=== PATIENT | female | born 1975 | race Caucasian/White ===

== ENCOUNTER → 2016-10-14 | Outpatient (CLI) | payer OTHER ==
--- NOTE | 2016-10-15 13:18 | MAMMOGRAPHY REPORT ---
BILATERAL DIGITAL SCREENING MAMMOGRAM TOMOSYNTHESIS WITH CAD: 10/14/2016 CLINICAL HISTORY: Routine screening. Patient has no complaints. TECHNIQUE: Breast tomosynthesis in addition to standard 2D mammography was performed. Current study was also evaluated with a Computer Aided Detection (CAD) system. COMPARISON: Comparison is made to exams dated: 06/20/2011 ultrasound and 06/20/2011 mammogram - [facility]. BREAST COMPOSITION: The tissue of both breasts is heterogeneously dense, which may obscure small ma sses. FINDINGS: The parenchymal pattern is unchanged. No developing mass, architectural distortion or clu ster of suspicious microcalcifications is seen in either breast. IMPRESSION: ACR BI-RADS CATEGORY 2: BENIGN There is no mammographic evidence of malignancy. A 1 year screening mammogram is recommended. The p atient will receive written notification of the results. Approximately 10% of breast cancers are not detected with mammography. A negative mammographic repor t should not delay biopsy if a clinically suggestive mass is present. Nicole Vincent M.D. ay/:10/14/2016 16:44:43 Chemical Processor: Uyen HARRELL(R)(Mg), [facility] letter sent: Normal 1/2 BI-RADS Code: ACR BI-RADS Category 2: Benign
== END | disposition home or self-care (01) ==
LOC: C.MAMM 14:50
PROVIDERS: ATTEND Obstetrics & Gynecology
DX: Z12.31 Encounter for screening mammogram for malignant neoplasm of breast (principal)

== ENCOUNTER → 2017-09-22 | Outpatient (CLI) | payer OTHER ==
[~2017-09-22] MED LIST: ACET-1256 PO; NAPR1TAB9 PO
--- NOTE | 2017-09-22 14:59 | DIAGNOSTIC IMAGING REPORT ---
CHEST 2 VIEWS ROUTINE CLINICAL HISTORY: CERVICAL SPINAL STENOSIS preoperative evaluation COMPARISON STUDY: No previous studies for comparison. FINDINGS: The bones soft tissues and hemidiaphragms are normal. The cardiomediastinal silhouette is normal. The lungs are clear. The pulmonary vasculature is normal. IMPRESSION: Negative chest. The above report was generated using voice recognition software. It may contain grammatical, syntax or spelling errors. Electronically signed by: Phill Corral M.D. 09/22/2017 2:58 PM Dictated Date/Time: 09/22/2017 2:58 PM
[2017-09-22 16:42] LABS: BASO % 0.5 %; BASO ABS # 0.03 K/uL (0-0.2); EOS % 1.6 %; IG# 0.02 K/uL (0.00-0.02); LYMPH ABS # 2.31 K/uL (1.2-3.4); MEAN CELL VOLUME 94.5 fL (80-100); MEAN CORPUSCULAR HEMOGLOBIN 32.3 pg (25-34); MEAN CORPUSCULAR HGB CONC 34.2 g/dl (32-36); MONO % 10.4 %; MONO ABS # 0.65 K/uL (0.11-0.59); NEUT % 50.2 %; NEUT ABS # 3.13 K/uL (1.4-6.5); PLATELET COUNT 297 K/uL (130-400); RED CELL DISTRIBUTION WIDTH CV 12.4 % (11.5-14.5); WHITE BLOOD COUNT 6.24 K/uL (4.8-10.8)
[2017-09-22 16:56] LABS: BLOOD UREA NITROGEN 12 mg/dl (7-18); CALCIUM 9.2 mg/dl (8.5-10.1); CARBON DIOXIDE 28 mmol/L (21-32); CREATININE 0.83 mg/dl (0.60-1.20); GLUCOSE 89 mg/dl (70-99); POTASSIUM 3.8 mmol/L (3.5-5.1); SODIUM 139 mmol/L (136-145)
== END | disposition home or self-care (01) ==
LOC: C.RAD 14:15
PROVIDERS: ATTEND Orthopaedic Surgery Orthopaedic Surgery of the Spine
DX: Z01.818 Encounter for other preprocedural examination (principal); M48.02 Spinal stenosis, cervical region

== ENCOUNTER 2017-10-07 05:47 | Inpatient (IN) | payer OTHER ==
[2017-09-02 16:08] VITALS: BMI 24.0
[~2017-10-07] VITALS: Ht 162.6 cm; Wt 63.6 kg
[2017-10-07] VITALS (15 sets, daily range): BP systolic 107–129; BP diastolic 71–86; PULSE 66–112; TEMP 36.5–36.9; O2SAT 93–100; Ht 162.6 cm; Wt 63.6 kg
[2017-10-07] MEDS ORDERED: CeleBREX 200 MG CAP PO SCH (06:00)
[2017-10-07] MEDS ORDERED: CEFAZOLIN 1000MG IV PUSH 7.5 ML IV SCH (06:00)
[2017-10-07] MEDS ORDERED: ACETAMINOPHEN 500 MG TAB PO SCH (06:00)
[2017-10-07] MEDS ORDERED: LACTATED RINGER'S 1000ML 1,000 ML IV SCH (06:00)
[2017-10-07] MEDS ORDERED: GABAPENTIN 900 MG PO SCH (06:00)
[2017-10-07] MEDS ORDERED: FENTANYL CITRATE INJ 50 MCG/1 ML 2 ML VIAL ONE ×4 (06:42→09:37)
[2017-10-07] MEDS ORDERED: MIDAZOLAM HCL 1 MG/ML 2ML VIAL ONE (06:42)
[2017-10-07] MEDS ORDERED: BACITRACIN 50000 UNIT VIAL ONE (06:57)
--- NOTE | 2017-10-07 07:29 | History & Physical Bridge Note ---
H&P Re-Evaluation Bridge Note: I have examined the patient, reviewed the History & Physical and in the interval since the performance of the History & Physical I have noted the following changes of clinical significance: No changes noted
--- NOTE | 2017-10-07 07:30 | History and Physical ---
History & Physical Date October 07, 2017. Chief Complaint Neck and arm pain History of Present Illness The patient is a 41 year old female with complaints of neck and arm pain Additional History Hepatic Disease: No Endocrine Disorder: No Kidney Disease: No Hypertension: No Heart Disease: No Bleeding Tendencies: No Infectious Diseases: No Allergies Coded Allergies: No Known Allergies (Unverified , 10/07/17) Home Medications Scheduled PRN Acetaminophen (Tylenol), 1-2 TAB PO UD PRN for Pain Naproxen (Aleve), 2 TAB PO UD PRN for PRN Physical Examination Skin: warm/dry, no rash Eyes: normal inspection, EOMI, sclerae normal ENT: normal ENT inspection, pharynx normal Head: normocephalic, atraumatic Neck: supple, no adenopathy, trachea midline Respiratory/Chest: lungs clear, normal breath sounds, no respiratory distress Cardiovascular: regular rate, rhythm, no edema, no murmur Abdomen / GI: normal bowel sounds, non tender Back: normal inspection Extremities: normal inspection, normal range of motion Neurologic/Psych: no motor/sensory deficits, alert, normal reflexes, oriented x 3 Diagnosis Cervical spinal stenosis with radiculopathy Plan of Treatment ACDF C5-6 C6-7
[2017-10-07] MEDS ORDERED: SCOPOLAMINE 1.5 MG TDSY TD ONE (07:33)
[2017-10-07] MEDS ORDERED: SCOPOLAMINE 1.5 MG TDSY TD SCH (08:00)
[2017-10-07] MEDS ORDERED: CHECK SCOPOLAMINE PATCH PLACEMENT SCH (08:00)
[2017-10-07] MEDS ORDERED: HYDROmorphone INJ 2 MG/ML SYR/VIAL ONE ×2 (08:07→09:04)
[2017-10-07] MEDS ORDERED: PROPOFOL IV EMULSION 10 MG/ML 20 ML VIAL ONE (08:11)
[2017-10-07] MEDS ORDERED: ONDANSETRON INJ 2 MG/ML 2 ML VIAL ONE (08:11)
[2017-10-07] MEDS ORDERED: RANITIDINE HCL 25 MG/ML INJ ONE (08:11)
[2017-10-07] MEDS ORDERED: METOCLOPRAMIDE HCL INJ 5 MG/ML 2 ML VIAL ONE (08:11)
[2017-10-07] MEDS ORDERED: ESMOLOL HCL 10 MG/ML 10 ML VIAL ONE (08:11)
[2017-10-07] MEDS ORDERED: DEXAMETHASONE SOD INJ 4 MG/ML VIAL ONE (08:11)
[2017-10-07] MEDS ORDERED: LIDOCAINE HCL 2% 2 ML VIAL (20MG/ML) ONE (08:11)
[2017-10-07] MEDS ORDERED: LARYING-O-JET KIT (LTA) ONE (08:11)
[2017-10-07] MEDS ORDERED: FLOSEAL HEMOSTATIC MATRIX 10ML TOP ONE (09:02)
[2017-10-07] MEDS ORDERED: ROCURONIUM BROMIDE 10 MG/ML 5 ML VIAL ONE (09:06)
[2017-10-07] MEDS ORDERED: GLYCOPYRROLATE INJ 0.2 MG/ML VIAL ONE (09:06)
[2017-10-07] MEDS ORDERED: NEOSTIGMINE METHYLSULFATE 1 MG/ML 10ML VIAL ONE (09:06)
--- NOTE | 2017-10-07 09:11 | [facility] Operative Report ---
Operative Report Operative Date October 07, 2017. Pre-Operative Diagnosis Cervical spinal stenosis with radiculopathy Post-Operative Diagnosis Cervical spinal stenosis with radiculopathy Procedure(s) Performed 1. Anterior cervical discectomy bilateral foraminotomies C5-6 C6-7. #2 anterior cervical arthrodesis C5-6 C6-7. #3 placement of cortical allograft filled with DBM 7 mm in height C5-6 C6-7. #4 application of hernandez plate and screws across C5-6 C6-7. Surgeon Dr. Amor Domingo Manager [employer] Surgeon(s) Alexsandra Jean PA-C Estimated Blood Loss 5ml Findings Spinal stenosis Specimens None per surgeon Anesthesia Type General Description of Procedure Patient was met with preoperatively case discussed all questions addressed. After informed consent obtained patient was taken to the operative suite underwent intubation and placed in supine position injected with head Avalos headholder. All bony prominences were well-padded eyes inspected to ensure no external pressure placed upon the. This point the anterior cervical spine was prepped and draped in normal sterile fashion. The assistance of fluoroscopy identified the C6 vertebral body and a transverse incision was placed along the right anterior aspect of the cervical spine overlying this region. Sharp dissection with the assistance of bipolar electrocautery was performed on November exposing the anterior cervical spine from C5-C7. Self-retaining retractors placed. Then performed a complete discectomy at C5-6 up to the uncovertebral joints bilaterally removed all posterior annular fibers longitudinal ligament bilateral foraminotomies performed. Moss distractor pins were utilized to assist in visualization. The endplates were then burred to subcortical bleeding bone and a 7 mm cortical allograft filled with DBM tapped in position. Distracting apparatus was removed and I proceeded to C6-7. Again complete discectomy performed endplates created to subcortical bleeding bone removed posterior annular fibers longitudinal ligament bilateral foraminotomies performed. 7 mm cortical allograft also filled with DBM tapped in position. Distracting apparatus was removed on anterior aspect burred to a smooth cortical surface and a hernandez plate and screws applied with the assistance of fluoroscopy. Incision was then copiously irrigated explored to ensure there is no damage to surrounding structures or remaining bleeding. 10 round CANDIE drain inserted. Incision was then closed with 1 Vicryl fascia 2-0 Vicryl substantially 4 Monocryl fashion closure Steri-Strips sterile dressings placed. Patient will continue PACU stable condition. Please note Alexsandra Graham present throughout the entire procedure involved in patient positioning complex portions of the surgery and fashion closure. I attest to the content of the Intraoperative Record and any orders documented therein. Any exceptions are noted below.
[2017-10-07] MEDS ORDERED: LORAZEPAM 0.5 MG TAB PO PRN (09:15)
[2017-10-07] MEDS ORDERED: DO NOT ADMINISTER FLU VACCINE PRN (09:15)
[2017-10-07] MEDS ORDERED: ONDANSETRON INJ 2 MG/ML 2 ML VIAL IV PRN ×2 (09:15→09:45)
[2017-10-07] MEDS ORDERED: DEXAMETHASONE INJ 8 MG in SYRINGE 0 ML IV PRN (09:15)
[2017-10-07] MEDS ORDERED: HYDROmorphone INJ 0.5 MG/0.5 ML SYR IV PRN (09:15)
[2017-10-07] MEDS ORDERED: RACEPINEPHRINE 2.25% NEBU SOLN 0.5 ML VIAL INH PRN (09:15)
[2017-10-07] MEDS ORDERED: LORAZEPAM INJ 0.5 MG in SYRINGE 0.75 ML IV PRN (09:15)
[2017-10-07] MEDS ORDERED: DO NOT ADMINISTER PNEUMOCOCCAL VACCINE PRN (09:15)
[2017-10-07] MEDS ORDERED: NALOXONE HCL 0.4 MG/1 ML VIAL/CARP IV PRN (09:15)
[2017-10-07] MEDS ORDERED: MAGNESIUM HYDROXIDE SUSP 30 ML UDC PO PRN (09:15)
[2017-10-07] MEDS ORDERED: DiphenhydrAMINE HCL 50 MG/ML VIAL IV PRN (09:15)
[2017-10-07] MEDS ORDERED: ACETAMINOPHEN IV 1,000 MG in EMPTY BAG 0 ML IV PRN (09:15)
[2017-10-07] MEDS ORDERED: FENTANYL CITRATE INJ 50 MCG/1 ML 2 ML VIAL IV PRN (09:45)
[2017-10-07] MEDS ORDERED: EpHEDrine SULFATE INJ 50 MG/ML AMP IV PRN (09:45)
[2017-10-07] MEDS ORDERED: ATROPINE SULFATE 0.1 MG/ML 5ML SYR IV PRN (09:45)
[2017-10-07] MEDS ORDERED: HYDROmorphone INJ 1 MG/ML SYR IV PRN (09:45)
--- NOTE | 2017-10-07 09:49 | DIAGNOSTIC IMAGING REPORT ---
CERVICAL 2 OR 3 VIEWS CLINICAL HISTORY: ACDF C5-7 COMPARISON STUDY: No previous studies for comparison. Fluoroscopy time: 9 seconds. FINDINGS: 2 fluoroscopic images demonstrate a C5-C7 anterior discectomy and fusion. Hardware is intact. Surgical drain is in place. Endotracheal tube is incidentally noted. IMPRESSION: Fluoroscopic images demonstrating a C5-C7 anterior discectomy and fusion. Electronically signed by: Klever Bagley M.D. 10/07/2017 9:48 AM Dictated Date/Time: 10/07/2017 9:47 AM
[2017-10-07] MEDS ORDERED: RXC5 PO (11:18)
--- NOTE | 2017-10-07 11:18 | Discharge Instructions ---
Discharge Instructions Date of Service October 07, 2017. Admission Reason for Admission: Cervical Spinal Stenosis Discharge Discharge Diagnosis / Problem: cervical stenosis Discharge Goals Goal(s): Improve function Activity Recommendations Activity Limitations: per Instructions/Follow-up section . Instructions / Follow-Up Instructions / Follow-Up ACTIVITY RECOMMENDATIONS: SELF CARE INSTRUCTIONS AFTER CERVICAL FUSIONS 1. No smoking. Smoking drastically decreases the chance of a solid fusion. 2. No bending, lifting more than 5 pounds, or twisting (roll like a log when turning in bed). 3. You may shower 3 days after surgery. Thoroughly dry wound. Do not soak in the tub. 4. Cervical collar: Must be worn at all times including sleeping. You may remove the brace only to bath, eat and if you are sitting in a recliner. 5. Please walk as much as you can for exercise. Gradually increase the distance that you walk as your endurance increases. SPECIAL CARE INSTRUCTIONS: VERY IMPORTANT TO READ AND REVIEW A. Do not take any anti-inflammatory medications (i.e. Indocin, Advil, Aspirin, Naprosyn, Aleve, Motrin, etc.) as these may inhibit the chance of a solid fusion. Tylenol is okay to take. B. Your surgical incision has been closed with a cosmetic suture under the skin that will dissolve in about 6 weeks. In 14 days, you can use a pair of clean scissors and cut the suture that is left outside of the skin at the ends of your incision. C. Complications are uncommon, but please contact us if you have any signs or symptoms of: 1. wound infection (fever higher than 102.5 degrees F, redness, separation of wound, drainage, or increasing pain from the incision) 2. blood clots in legs (pain, swelling, redness and warmth in legs) 3. urinary tract infection (fever higher than 102.5 degrees, burning upon urination or increased frequency of urination) 4. nerve problems (inability to walk on your toes or heels, numbness, loss of bowel or bladder control) 5. any other symptoms that concern you. D. Please call the office at if you have any concerns or questions about your operation or recovery. MANAGING PAIN AFTER SPINAL SURGERY 1. Narcotic medication is intended for short-term use and will be provided for surgical pain. Surgical pain usually lasts for a period of 4-6 weeks. Narcotic medication includes Percocet, Vicodin, Darvocet, Tylenol #3 or Lortab. 2. Longer-term pain is more appropriately treated with non-narcotic medication such as Tylenol ES. 3. Muscle spasm is not appropriately treated with narcotics. Muscle relaxers such as Soma, Flexeril or Skelaxin can be used along with Tylenol ES. 4. Remember that we all live with some "aches and pains". This is not unusual or uncommon after an injury or as we get older. 5. We will provide appropriate medication within the normal guidelines of their prescribed use. We will also be very cautious and aware of potential abuse and extended duration of patients' medication needs. 6. Please allow 2-3 days to process refills. Prescriptions will not be mailed but must be picked up at the office. FOLLOW UP VISIT: Keep your scheduled follow-up appointment. Any questions, please call the office at . Current Hospital Diet Patient's current hospital diet: Discharge Diet Recommended Diet: Regular Diet Procedures Procedures Performed: 1. Anterior cervical discectomy bilateral foraminotomies C5-6 C6-7. #2 anterior cervical arthrodesis C5-6 C6-7. #3 placement of cortical allograft filled with DBM 7 mm in height C5-6 C6-7. #4 application of hernandez plate and screws across C5-6 C6-7. Pending Studies Studies pending at discharge: no Medical Emergencies . Who to Call and When: Medical Emergencies: If at any time you feel your situation is an emergency, please call 911 immediately. . Non-Emergent Contact Non-Emergency issues call your: Primary Care Provider . "Provider Documentation" section prepared by Amor Domingo. .
--- NOTE | 2017-10-07 11:26 | Anesthesiology Progress Note ---
Anesthesia Post Op Note Date & Time October 07, 2017 at 11:26 Vital Signs Pain Intensity: 6.0 Vital Signs Past 12 Hours Date Time Temp Pulse Resp B/P (MAP) Pulse Ox O2 Delivery O2 Flow Rate FiO2 10/07/17 11:10 36.8 66 16 127/85 (103) 100 Nasal Cannula 2.0 10/07/17 11:07 100 Nasal Cannula 2.0 10/07/17 10:40 36.8 66 16 127/85 (99) 100 Nasal Cannula 2.0 10/07/17 10:40 36.8 66 16 127/85 (103) 100 Room Air 2.0 10/07/17 10:40 100 Nasal Cannula 2.0 Humidified Oxygen 10/07/17 10:17 36.5 94 16 125/82 100 Nasal Cannula 2 10/07/17 10:03 36.0 87 16 136/91 (103) 100 Nasal Cannula 2 10/07/17 09:52 100 20 10/07/17 09:52 98 20 100 10/07/17 09:51 137/83 10/07/17 09:47 93 16 10/07/17 09:47 94 16 100 10/07/17 09:46 128/82 10/07/17 09:42 95 21 10/07/17 09:42 99 21 99 10/07/17 09:41 129/84 10/07/17 09:37 95 15 100 10/07/17 09:37 94 15 10/07/17 09:36 127/78 10/07/17 09:32 86 13 100 10/07/17 09:32 86 13 10/07/17 09:31 123/83 10/07/17 09:27 82 16 94 10/07/17 09:27 83 16 10/07/17 09:26 131/86 10/07/17 09:23 117/77 10/07/17 09:22 36.0 93 14 117/77 (95) 100 Oxymask 10 10/07/17 06:25 36.5 91 20 126/85 98 Room Air Notes Mental Status: alert / awake / arousable, participated in evaluation Pt Amnestic to Procedure: Yes Nausea / Vomiting: adequately controlled Pain: adequately controlled Airway Patency, RR, SpO2: stable & adequate BP & HR: stable & adequate Hydration State: stable & adequate Anesthetic Complications: no major complications apparent
[2017-10-07] MEDS ORDERED: OXYCODONE HCL IR 5 MG TAB (IMMEDIATE RELEASE) ONE (11:56)
[2017-10-07] MEDS: LACTATED RINGER'S 1000ML 1,000 ML IV SCH ×2 (12:31→23:29)
[2017-10-07] MEDS: CEFAZOLIN IV 1,000 MG in SYRINGE 0 ML IV SCH ×2 (15:48→23:29)
[2017-10-07] MEDS: CHECK SCOPOLAMINE PATCH PLACEMENT SCH ×2 (15:54→23:30)
[2017-10-07] MEDS: OXYCODONE HCL IR 5 MG TAB (IMMEDIATE RELEASE) PO PRN ×2 (16:56→22:03)
[2017-10-07] MEDS: DOCUSATE SODIUM 100 MG CAP PO SCH (20:23)
[2017-10-07] MEDS ORDERED: ACETAMINOPHEN IV 1000MG/100ML IV PRN (23:15)
[2017-10-08] VITALS (8 sets, daily range): BP systolic 103–106; BP diastolic 63–72; PULSE 97–103; TEMP 36.9–37.1; O2SAT 96–100
[2017-10-08] MEDS: OXYCODONE HCL IR 5 MG TAB (IMMEDIATE RELEASE) PO PRN ×3 (02:03→10:21)
[2017-10-08] MEDS: CEFAZOLIN IV 1,000 MG in SYRINGE 0 ML IV SCH (07:33)
[2017-10-08] MEDS: DOCUSATE SODIUM 100 MG CAP PO SCH (07:33)
[2017-10-08] MEDS: CHECK SCOPOLAMINE PATCH PLACEMENT SCH (07:33)
--- NOTE | 2017-10-08 07:44 | Orthopedic Progress Note ---
Orthopedic Progress Note Date of Service October 08, 2017. Subjective Post OP Day: 1 Reports: feeling well Additional Notes: Care is postoperative day 1 ACDF. She is doing well. She has some modest right shoulder pain. No dysphagia or default dysphonia. She is up and ambulatory. CANDIE drain output last shift was 10 cc. She is voiding without issue. Objective calves soft nontender, N/V intact, dressing C/D/I, A&O x3 She is sitting in a reclined position in bed. No obvious distress. Dressing is clean dry and intact. Strength is intact bilateral upper extremities. She is in no obvious distress. Calf is soft nontender bilaterally. Date Time Temp Pulse Resp B/P (MAP) Pulse Ox O2 Delivery O2 Flow Rate FiO2 10/08/17 07:36 100 16 100 Room Air 10/08/17 05:40 36.9 97 16 103/71 96 Room Air 10/08/17 03:40 37.1 99 16 104/72 96 Room Air 10/08/17 03:35 101 16 97 Room Air 10/08/17 01:40 36.9 103 16 103/63 96 Room Air 10/07/17 23:40 Room Air 10/07/17 23:40 36.8 103 16 108/74 (85) 96 Room Air 10/07/17 23:40 36.9 103 16 108/74 96 Room Air 10/07/17 23:10 83 16 93 Room Air 10/07/17 22:04 36.6 111 16 107/72 96 Room Air 10/07/17 20:14 36.8 109 16 109/71 97 Nasal Cannula 1.5 10/07/17 19:20 86 16 95 Room Air 10/07/17 17:51 36.7 109 16 118/76 96 Nasal Cannula 1.5 10/07/17 16:15 Nasal Cannula 2.0 10/07/17 15:33 109 16 98 Nasal Cannula 2.0 10/07/17 15:29 36.8 112 16 107/73 97 Nasal Cannula 2.0 10/07/17 13:40 36.7 111 16 129/76 (93) 97 Nasal Cannula 2.0 Humidified Oxygen 10/07/17 13:40 36.7 111 16 129/76 (103) 97 Nasal Cannula 2.0 Humidified Oxygen 10/07/17 12:40 36.5 102 16 127/80 (96) Nasal Cannula 2.0 Humidified Oxygen 10/07/17 12:40 36.5 102 16 127/80 (103) 96 Nasal Cannula 2.0 Humidified Oxygen 10/07/17 11:40 36.9 99 16 113/77 (89) 96 Nasal Cannula 2.0 10/07/17 11:40 36.9 99 16 113/77 (103) 96 Nasal Cannula 2.0 10/07/17 11:26 74 96 Nasal Cannula 2.0 10/07/17 11:10 36.8 102 16 123/86 (98) 100 Nasal Cannula 2.0 Humidified Oxygen 10/07/17 11:10 36.8 66 16 127/85 (103) 100 Nasal Cannula 2.0 10/07/17 11:07 100 Nasal Cannula 2.0 10/07/17 10:40 36.8 66 16 127/85 (99) 100 Nasal Cannula 2.0 10/07/17 10:40 36.8 66 16 127/85 (103) 100 Room Air 2.0 10/07/17 10:40 100 Nasal Cannula 2.0 Humidified Oxygen 10/07/17 10:17 36.5 94 16 125/82 100 Nasal Cannula 2 10/07/17 10:03 36.0 87 16 136/91 (103) 100 Nasal Cannula 2 10/07/17 09:52 100 20 10/07/17 09:52 98 20 100 10/07/17 09:51 137/83 10/07/17 09:47 93 16 10/07/17 09:47 94 16 100 10/07/17 09:46 128/82 10/07/17 09:42 95 21 10/07/17 09:42 99 21 99 10/07/17 09:41 129/84 10/07/17 09:37 95 15 100 10/07/17 09:37 94 15 10/07/17 09:36 127/78 10/07/17 09:32 86 13 100 10/07/17 09:32 86 13 10/07/17 09:31 123/83 10/07/17 09:27 82 16 94 10/07/17 09:27 83 16 10/07/17 09:26 131/86 10/07/17 09:23 117/77 10/07/17 09:22 36.0 93 14 117/77 (95) 100 Oxymask 10 Assessment & Plan Assessment: Postoperative day 1 ACDF Plan: She is doing well. She is up and amatory voiding without issue. Pain is controlled. We will discharge her home. All questions are answered and restrictions reviewed in detail. She will follow-up in office in 2 weeks. Inhouse Planning Pain Management: Oxy IR DVT Prophylaxis: TEDs, SCDs Discharge Planning Discharge Planning: home Pain Management: Oxy IR DVT Prophylaxis: TEDs
--- NOTE | 2017-10-08 07:46 | Discharge Summary ---
Orthopedic Discharge Summary Admission Date/Reason October 07, 2017 at 09:13 Cervical Spinal Stenosis. Discharge Date/Disposition October 08, 2017 Home Diagnosis Principal Diagnosis: Neuroforaminal stenosis of the cervical spine with upper extremity radiculopathy Procedure(s) Performed ACDF C5-6, C6-7 Medication Reconciliation New Medications: Ondansetron Hcl (Zofran) 4 Mg Tab 4 MG PO Q6, #30 TAB Oxycodone HCl (Oxycodone HCl) 5 Mg Tab 5-10 MG PO Q4H PRN for moderate-severe pain for 30 Days, #30 TAB Continued Medications: Acetaminophen (Tylenol) 500 Mg Tab 1-2 TAB PO UD PRN for Pain, TAB Discontinued Medications: Naproxen (Aleve) 220 Mg Tab 2 TAB PO UD PRN for PRN, TAB PT RECEIVED INSTRUCTIONS FROM DR ELKINS OFFICE REGARDING THIS MED Admission Physical Exam As per Admitting History & Physical. Hospital Course Patient has had an uneventful hospital course. She is up and amBULAatory voiding without issue. No significant difficult dysphagia or dysphonia. Upper extremity pain is improved. Therefore discharged home on postoperative day 1. Discharge Instructions Please refer to the electronic Patient Visit Report (Discharge Instructions) for additional information.
[2017-10-08] MEDS ORDERED: ONDA4TAB46 PO (07:47)
[2017-10-09] MEDS ORDERED: BISACODYL 10 MG SUPP PR PRN (06:00)
[2017-10-09] MEDS ORDERED: BISACODYL 5 MG TABEC PO PRN (06:00)
[2017-10-09] MEDS ORDERED: POLYETHYLENE (MIRALAX) 17 GM PACK PO SCH (09:00)
[2017-10-10] MEDS ORDERED: SCOPOLAMINE 1.5 MG TDSY TD SCH (09:15)
== END 2017-10-08 11:11 | disposition home or self-care (01) | DRG 473 ==
LOC: C.ACU 05:47 → C.3E 09:13 → ENRESERV 10:10
PROVIDERS: ADMIT Orthopaedic Surgery Orthopaedic Surgery of the Spine; ATTEND Orthopaedic Surgery Orthopaedic Surgery of the Spine
PROC: 0RT30ZZ Resection of Cervical Vertebral Disc, Open Approach (ICD-10-PCS; principal; 2017-10-07 07:45)
PROC: 0RG20K0 Fusion of 2 or more Cervical Vertebral Joints with Nonautologous Tissue Substitute, Anterior Approach, Anterior Column, Open Approach (ICD-10-PCS; principal; 2017-10-07 07:45)
DX: M48.02 Spinal stenosis, cervical region (principal); M54.02 Panniculitis affecting regions of neck and back, cervical region